=== PATIENT | male | born 1960 | race Hispanic/Latino ===

== ENCOUNTER → 2018-04-28 | Day surgery (SDC) | payer BC ==
[2018-04-25 09:59] LABS: BASOPHILS # (AUTO) 0.1 (0.0-0.1); BASOPHILS % 0.6 % (0.0-1.0); EOSINOPHILS # (AUTO) 0.1 (0.0-0.4); EOSINOPHILS % 1.1 % (0.0-6.0); HEMATOCRIT 45.5 % (38.2-49.6); HEMOGLOBIN 15.1 g/dL (14.0-18.0); LYMPHOCYTES # (AUTO) 1.6 (1.0-3.2); LYMPHOCYTES % 19.2 % (18.0-39.1); MEAN CORPUSCULAR HEMOGLOBIN 28.7 pg (28-32); MEAN CORPUSCULAR HGB CONC 33.2 g/dL (31-35); MEAN CORPUSCULAR VOLUME 86.3 fL (81-99); MONOCYTES # (AUTO) 0.5 (0.2-0.8); MONOCYTES % 5.4 % (4.4-11.3); NEUTROPHILS # (AUTO) 6.1 (2.1-6.9); NEUTROPHILS % 73.3 % (38.7-80.0); PLATELET COUNT 328 x10e3/uL (140-360); RED BLOOD COUNT 5.27 x10e6/uL (4.3-5.7); RED CELL DISTRIBUTION WIDTH 13.5 % (11.7-14.4)
[2018-04-25 10:25] LABS: ANION GAP 15.1 mmol/L (8-16); BLOOD UREA NITROGEN 18 mg/dL (7-26); BUN/CREATININE RATIO 20 (6-25); CALCIUM 9.7 mg/dL (8.4-10.2); CARBON DIOXIDE 28 mmol/L (22-29); CHLORIDE 99 mmol/L (98-107); CREATININE, SERUM 0.92 mg/dL (0.72-1.25); EST GLOMERULAR FILTRATION RATE > 60 ML/MIN (60-); GLUCOSE 111 mg/dL (74-118); POTASSIUM 4.1 mmol/L (3.5-5.1); SODIUM 138 mmol/L (136-145)
--- NOTE | 2018-04-25 10:42 | Diagnostic Imaging Report ---
EXAMINATION: PA and lateral views of the chest. COMPARISON: None CLINICAL HISTORY: Preoperative study inguinal hernia repair DISCUSSION: Lungs are well-inflated. No focal airspace consolidation, pleural effusion, or pneumothorax. Tortuous thoracic aorta with otherwise normal cardiomediastinal contour. No acute osseous abnormality. IMPRESSION: No acute cardiopulmonary abnormalities. Signed by: Dr. Juan Adame M.D. on 04/25/2018 10:39 AM
[~2018-04-28] MED LIST: BUPIVACAINE 0.25%/EPI 30ML SDV INJ ONE; CENTRUM COMPLE1 EACH PO; FENTANYL CITRATE/PF 100MCG/2 ML INJ ONE; HYDROCODONE/APAP 7.5MG-325MG 1 EA TAB ONE; KETAMINE HCL INJ 50 MG/ML 10 ML VIAL ONE; LIDOCAINE HCL 1% LOCAL INJ 20 ML VIAL ONE; LIDOCAINE HCL 2% LOCAL INJ 5 ML SDV VIAL INJ ONE; LOSARTAN POTASS25 MG PO; LOSARTAN-HCTZ1 EAC2 PO; METFORMIN HCL500 MG PO; MIDAZOLAM HCL 2 MG/2 ML VIAL ONE; PROPOFOL IV EMULSION 10 MG/ML 20 ML VIAL ONE
--- OUTSIDE RECORDS SUMMARY | 2018-04-28 08:08 | XMS REPORT ---
Author [facility] Address Unknown Phone Unavailable Care Team Providers Care Clinical Research Analyst Name Role Phone Melyssa CASTLE Unavailable Unavailable Problems This patient has no known problems. Allergies, Adverse Reactions, Alerts This patient has no known allergies or adverse reactions. Medications This patient has no known medications. Results Test Description Test Time Test Comments Text Results Atomic Results Result Comments CHEST 2 VIEWS 2018-04-25 10:37:00 [place] [id number] Patient Name: TAMMIE TANG MR #: [id number] : 1960 Age/Sex: 57/M Req #: [id number] Adm Physician: Ordered by: ELLEN CASTLE MD Report #: [id number] Location: OR Room/Bed: Procedure: [id number] DX/CHEST 2 VIEWS Exam Date: 04/25/18 Exam Time: 1000 REPORT STATUS: Signed EXAMINATION: PA and lateral views of the chest. COMPARISON: None CLINICAL HISTORY: Preoperative study inguinal hernia repair DISCUSSION: Lungs are well-inflated. No focal airspace consolidation, pleural effusion, or pneumothorax. Tortuous thoracic aorta with otherwise normal cardiomediastinal contour. No acute osseous abnormality. IMPRESSION: No acute cardiopulmonary abnormalities. Signed by: Dr. Agustina Galvin M.D. on 04/25/2018 10:39 AM Dictated By: AGUSTINA GALVIN MD 38 Transcribed By: THOR on 04/25/181038 COPY TO: ELLEN CASTLE MD
--- NOTE | 2018-04-28 13:28 | Operative Report ---
DATE OF PROCEDURE: April 28, 2018 PREOPERATIVE DIAGNOSIS: Left inguinal hernia. POSTOPERATIVE DIAGNOSIS: Left direct inguinal hernia. OPERATION PERFORMED: Repair of left direct inguinal hernia with large Prolene Hernia System. ANESTHESIA: Local 1% Xylocaine and 1/4 percent Marcaine and MAC. COMPLICATIONS: None. ESTIMATED BLOOD LOSS: Minimal. DESCRIPTION OF PROCEDURE: With the patient lying in bed in the supine position, under good IV sedation, the left groin and lower abdomen were prepped with Betadine solution and draped in the usual manner. A standard field block was performed with 1/4 percent Marcaine and 1% lidocaine mixed in equal parts. A left groin incision was made. It was carried down through the subcutaneous tissue down to the external oblique aponeurosis. External oblique was opened along the length of its fibers. The external inguinal ring was opened. The cord was then mobilized and retracted. Contained within the cord, there was no indirect hernia sac. There was, however, a large direct hernia sac present. The direct hernia sac was then imbricated with a pursestring suture of 2-0 silk. The preperitoneal space was then entered right through the internal ring, and a pocket was created without any difficulty. A large Prolene Hernia System was placed in the preperitoneal space, and the underlay patch was deployed without any problems. The overlay patch was placed over the floor and split inferolaterally to allow for passage of the cord. The mesh was then sutured to the conjoined tendon and the inguinal ligament using interrupted sutures of 2-0 Vicryl . The whole area was then thoroughly irrigated. Perfect hemostasis was ascertained. The external oblique aponeurosis was closed with a running suture of 2-0 Vicryl. The subcutaneous tissue was approximated with 3-0 plain, and the skin was closed with clips. Dressing was applied. The sponge, lap and needle count was correct. The patient tolerated the procedure well and returned to the recovery room in stable condition. Job#: [id number]
[2018-04-28 15:00] VITALS: BP 100/69
== END | disposition home or self-care (01) ==
LOC: OR 08:05
PROVIDERS: ATTEND Surgery
DX: K40.90 Unilateral inguinal hernia, without obstruction or gangrene, not specified as recurrent (principal); Z01.810 Encounter for preprocedural cardiovascular examination; Z01.812 Encounter for preprocedural laboratory examination; Z01.811 Encounter for preprocedural respiratory examination; E11.9 Type 2 diabetes mellitus without complications; I10 Essential (primary) hypertension; Z79.84 Long term (current) use of oral hypoglycemic drugs
CPT/HCPCS: 36415 ×2; 49505; 71046; 80048; 82948; 85025; 93005; C1781; J2001 ×2; J2250; J2704

== ENCOUNTER 2019-02-04 16:26 | Inpatient (IN) | payer BC ==
[~2019-02-04] VITALS: Ht 172.7 cm; Wt 86.2 kg
[~2019-02-04 16:26] MED LIST changes: -BUPIVACAINE 0.25%/EPI 30ML SDV INJ ONE; -FENTANYL CITRATE/PF 100MCG/2 ML INJ ONE; -HYDROCODONE/APAP 7.5MG-325MG 1 EA TAB ONE; -KETAMINE HCL INJ 50 MG/ML 10 ML VIAL ONE; -LIDOCAINE HCL 1% LOCAL INJ 20 ML VIAL ONE; -LIDOCAINE HCL 2% LOCAL INJ 5 ML SDV VIAL INJ ONE; -MIDAZOLAM HCL 2 MG/2 ML VIAL ONE; -PROPOFOL IV EMULSION 10 MG/ML 20 ML VIAL ONE
[2019-02-04] MEDS ORDERED: SODIUM CHLORIDE 0.9% 1000ML 1,000 ML IV STA (17:10)
[2019-02-04] MEDS ORDERED: DILTIAZEM HCL 5 MG/ML 5 ML VIAL IV ONE (17:30)
[2019-02-04] MEDS ORDERED: ASPIRIN 81 MG CHEW TAB PO ONE (17:30)
[2019-02-04 17:45] LABS: BASOPHILS # (AUTO) 0.1 (0.0-0.1); BASOPHILS % 0.5 % (0.0-1.0); EOSINOPHILS # (AUTO) 0.1 (0.0-0.4); EOSINOPHILS % 1.1 % (0.0-6.0); HEMATOCRIT 40.8 % (38.2-49.6); HEMOGLOBIN 13.6 g/dL (14.0-18.0); LYMPHOCYTES % 21.8 % (18.0-39.1); MEAN CORPUSCULAR HEMOGLOBIN 29.1 pg (28-32); MEAN CORPUSCULAR HGB CONC 33.3 g/dL (31-35); MEAN CORPUSCULAR VOLUME 87.4 fL (81-99); MONOCYTES # (AUTO) 0.7 (0.2-0.8); MONOCYTES % 7.1 % (4.4-11.3); NEUTROPHILS # (AUTO) 6.4 (2.1-6.9); NEUTROPHILS % 69.2 % (38.7-80.0); PLATELET COUNT 313 x10e3/uL (140-360); RED BLOOD COUNT 4.67 x10e6/uL (4.3-5.7); RED CELL DISTRIBUTION WIDTH 13.5 % (11.7-14.4)
[2019-02-04] MEDS ORDERED: AMIODARONE HCL 360MG 200 ML IV SCH ×2 (17:45→18:00)
[2019-02-04 18:00] LABS: ALANINE AMINOTRANSFERASE 27 IU/L (0-55); ALBUMIN 3.9 g/dL (3.5-5.0); ALBUMIN/GLOBULIN RATIO 1.1 (0.8-2.0); ALKALINE PHOSPHATASE 59 IU/L (40-150); ANION GAP 15.9 mmol/L (8-16); BLOOD UREA NITROGEN 24 mg/dL (7-26); BUN/CREATININE RATIO 21 (6-25); CALCIUM 8.7 mg/dL (8.4-10.2); CARBON DIOXIDE 24 mmol/L (22-29); CHLORIDE 100 mmol/L (98-107); CREATINE KINASE 168 IU/L (30-200); CREATININE, SERUM 1.14 mg/dL (0.72-1.25); EST GLOMERULAR FILTRATION RATE > 60 ML/MIN (60-); GLUCOSE 153 mg/dL (74-118); MAGNESIUM 2.1 MG/DL (1.3-2.1); POTASSIUM 3.9 mmol/L (3.5-5.1); SODIUM 136 mmol/L (136-145)
[2019-02-04] MEDS ORDERED: AMIODARONE HCL 150MG 100 ML IV ONE (18:00)
--- NOTE | 2019-02-04 18:02 | Diagnostic Imaging Report ---
EXAMINATION: CHEST SINGLE (PORTABLE) INDICATION: ^afib rvr ^[id number] ^[id number] COMPARISON: Chest radiograph 04/25/2018 FINDINGS: AP view TUBES and LINES: None. LUNGS: Low lung volumes. Mild central pulmonary vascular congestion. No pneumonia. PLEURA: No pleural effusion or pneumothorax. HEART AND MEDIASTINUM: Prominent cardiac silhouette likely due to portable technique. Mildly tortuous thoracic aorta. BONES AND SOFT TISSUES: No acute osseous lesion. Soft tissues are unremarkable. UPPER ABDOMEN: No free air under the diaphragm. IMPRESSION: Mild central pulmonary vascular congestion may be overestimated by portable technique. Signed by: Dr. Donna Carmichael M.D. on 02/04/2019 5:59 PM
[2019-02-04 18:10] LABS: BILIRUBIN,URINE NEGATIVE (NEGATIVE); CLARITY,URINE CLEAR (CLEAR); COLOR,URINE YELLOW (YELLOW); KETONES,URINE NEGATIVE (NEGATIVE); LEUKOCYTE ESTERASE ,URINE NEGATIVE (NEGATIVE); NITRITE,URINE NEGATIVE (NEGATIVE); PROTEIN,URINE DIPSTICK NEGATIVE (NEGATIVE); URINE UROBILINOGEN 0.2 mg/dL (0.2 - 1)
[2019-02-04 18:13] LABS: INR 0.86; PROTHROMBIN TIME 12.2 seconds (11.9-14.5)
[2019-02-04] MEDS: AMIODARONE 900MG 500 ML IV SCH (18:14)
[2019-02-04] MEDS ORDERED: ENOXAPARIN SODIUM INJ 100 MG/ML SYR SC ONE (18:30)
[2019-02-04] MEDS ORDERED: NITROGLYCERIN 0.4 MG SUBL SL PRN (19:00)
[2019-02-04] MEDS ORDERED: ONDANSETRON HCL INJ 2MG/ML 2ML 2 MG/ML VIAL IV PRN (19:00)
[2019-02-04] MEDS ORDERED: SODIUM CHLORIDE 0.9% 1000ML 1,000 ML IV ONE (19:00)
--- NOTE | 2019-02-04 19:02 | NUR ---
REPORT GIVEN TO JOSÉ PIMENTEL
[2019-02-04 19:12] LABS: BACTERIA,URINE RARE /HPF; RBC,URINE 0-5 /HPF (0-5); WBC,URINE (MAN) 0-5 /HPF (0-5)
[2019-02-04] MEDS: FAMOTIDINE 20 MG/2 ML VIAL IV SCH (19:22)
[2019-02-04 19:55] VITALS: BP 135/95
[2019-02-04 20:00] VITALS: BP 135/95
[2019-02-04 20:24] VITALS: BP 119/76
[2019-02-04 21:00] VITALS: BP 96/75
[2019-02-04 22:00] VITALS: BP 98/81
[2019-02-04 23:00] VITALS: BP 105/78
[2019-02-05] VITALS (27 sets, daily range): BP systolic 91–115; BP diastolic 56–91
[2019-02-05 00:31] LABS: CREATINE KINASE 104 IU/L (30-200)
[2019-02-05 05:15] LABS: BASOPHILS % 0.4 % (0.0-1.0); EOSINOPHILS # (AUTO) 0.1 (0.0-0.4); EOSINOPHILS % 1.9 % (0.0-6.0); HEMATOCRIT 38.6 % (38.2-49.6); HEMOGLOBIN 12.7 g/dL (14.0-18.0); LYMPHOCYTES # (AUTO) 1.6 (1.0-3.2); LYMPHOCYTES % 23.1 % (18.0-39.1); MEAN CORPUSCULAR HEMOGLOBIN 28.8 pg (28-32); MEAN CORPUSCULAR HGB CONC 32.9 g/dL (31-35); MEAN CORPUSCULAR VOLUME 87.5 fL (81-99); MONOCYTES # (AUTO) 0.6 (0.2-0.8); MONOCYTES % 8.3 % (4.4-11.3); NEUTROPHILS # (AUTO) 4.5 (2.1-6.9); NEUTROPHILS % 65.9 % (38.7-80.0); PLATELET COUNT 266 x10e3/uL (140-360); RED BLOOD COUNT 4.41 x10e6/uL (4.3-5.7); RED CELL DISTRIBUTION WIDTH 13.7 % (11.7-14.4)
[2019-02-05 05:34] LABS: ALANINE AMINOTRANSFERASE 21 IU/L (0-55); ALBUMIN 3.2 g/dL (3.5-5.0); ALBUMIN/GLOBULIN RATIO 1.1 (0.8-2.0); ALKALINE PHOSPHATASE 48 IU/L (40-150); ANION GAP 11.6 mmol/L (8-16); BLOOD UREA NITROGEN 12 mg/dL (7-26); BUN/CREATININE RATIO 16 (6-25); CARBON DIOXIDE 23 mmol/L (22-29); CHLORIDE 106 mmol/L (98-107); CHOL/HDL RATIO 4.2 (3.9-4.7); CHOLESTEROL 146 MD/DL (0-199); CREATININE, SERUM 0.77 mg/dL (0.72-1.25); EST GLOMERULAR FILTRATION RATE > 60 ML/MIN (60-); GLUCOSE 126 mg/dL (74-118); HDL CHOLESTEROL 35 MG/DL (40-60); LDL CHOLESTEROL 83 MG/DL (60-130); POTASSIUM 3.6 mmol/L (3.5-5.1); SODIUM 137 mmol/L (136-145); TRIGLYCERIDES 142 MG/DL (0-149)
[2019-02-05 05:58] LABS: CREATINE KINASE 91 IU/L (30-200)
[2019-02-05] MEDS: FAMOTIDINE 20 MG/2 ML VIAL IV SCH (06:01)
[2019-02-05 06:06] LABS: CREATINE KINASE MB < 1.00 ng/mL (0-4.3)
[2019-02-05] MEDS ORDERED: ENOXAPARIN SODIUM INJ 100 MG/ML SYR SC ONE (07:00)
[2019-02-05] MEDS: ASPIRIN 81 MG ENTERIC COATED PO SCH (08:27)
[2019-02-05] MEDS: METFORMIN HCL 500 MG TAB PO SCH (08:27)
[2019-02-05] MEDS ORDERED: POTASSIUM CHLORIDE 20 MEQ TAB CR PO ONE (08:30)
[2019-02-05] MEDS: METOPROLOL TARTRATE 25 MG TAB PO SCH ×2 (09:29→16:19)
[2019-02-05] MEDS ORDERED: METOPROLOL TARTRATE 25 MG TAB ONE (09:30)
[2019-02-05] MEDS ORDERED: ONDANSETRON HCL INJ 2MG/ML 2ML 2 MG/ML VIAL IV PRN (12:15)
[2019-02-05] MEDS ORDERED: ACETAMINOPHEN 325 MG TAB PO PRN (12:15)
--- NOTE | 2019-02-05 12:34 | Consultation ---
DATE OF CONSULTATION: Pulmonary Critical Care Consultation CHIEF COMPLAINT: Palpitations and fast heart rate. HISTORY OF PRESENT ILLNESS: The patient is a 58-year-old man. He has a history of high blood pressure, but no prior heart problems. Yesterday afternoon, he noticed the abrupt onset of tachycardia. He had palpitations, but no chest pain. He had no dyspnea. He denied any nausea or vomiting. He had no cough. The patient went to the emergency department. He was found to be in rapid atrial fibrillation. He received some Cardizem and was started on amiodarone drip. He was subsequently admitted to the ICU. PAST SURGICAL HISTORY: Status post inguinal hernia repair earlier this year. PAST MEDICAL HISTORY: Hypertension. SOCIAL HISTORY: The patient has never been a smoker. He is not a drinker. FAMILY HISTORY: Family history is noncontributory. ALLERGIES: THERE ARE NO KNOWN DRUG ALLERGIES. REVIEW OF SYSTEMS: The patient is afebrile. He has no headache. He has no neck pain. He is not complaining of any chest pain. He has no dyspnea or cough. He did have some palpitations, but this has improved. He has no nausea or vomiting. There is no leg edema. PHYSICAL EXAMINATION: VITAL SIGNS: The patient is afebrile. The blood pressure is 114/83, saturation is 100%, and the pulse is 94. HEENT: Shows no facial swelling or erythema. CARDIAC: Reveals an irregularly irregular rhythm with normal S1 and S2. There are no murmurs or rubs. LUNGS: Auscultation of lungs shows clear breath sounds bilaterally. There is no wheezing. ABDOMEN: Soft and nontender. There is no rebound or guarding. EXTREMITIES: Shows no leg edema or calf tenderness. There is no cyanosis or clubbing. SKIN: Shows no rashes. NEUROLOGICAL: Shows no focal abnormalities. LABORATORY DATA: White blood cell count is 6.8 and the hemoglobin is 12.7. The platelet count is 266. The BUN to creatinine ratio is normal. The other electrolytes are within normal limits. Troponin I is normal. TSH is still pending. IMPRESSION: 1. New onset atrial fibrillation with rapid ventricular response. 2. Hypertension. PLAN: 1. Continue amiodarone loading protocol. 2. Continue Lovenox. 3. Echocardiogram and Cardiology consultation. 4. Await thyroid studies. 5. Control blood pressure. MD CHRISTINA Medrano /[id number]
[2019-02-05 14:01] LABS: CREATINE KINASE 75 IU/L (30-200)
[2019-02-05] MEDS: AMIODARONE 900MG 500 ML IV SCH (15:46)
--- NOTE | 2019-02-05 15:52 | Consultation ---
DATE OF CONSULTATION: 02/05/2019 Cardiac Consultation REASON FOR CONSULTATION: Atrial fibrillation. HISTORY: A 58-year-old gentleman who is known with hypertension for the last 20 years, diabetic for a year. The patient used to be on losartan. He was changed to Benicar-hydrochlorothiazide. Initially started on 40-12.5. It caused him quite a lot of dizzy spells, so it was decreased to 20-12.5. He is still having postural hypotension like symptoms. 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 Yesterday, he noted at work his heart irregular. He felt dizzy and he felt not easy. He went back home despite relaxing and so on he continued to have symptoms. For that reason, he came to this institution at 5:00 p.m. Diagnosed with atrial fibrillation with rapid ventricular response. The patient is started on intravenous amiodarone. Admit to intensive care unit. The patient is seen and evaluated. He is still in atrial fibrillation. He is feeling better now. He denied having any angina. He denied having any congestive heart failure like symptoms. He denied having any syncope or presyncope, although he does have postural hypotension and dizzy spells and a palpitation feeling. REVIEW OF SYSTEMS: Extensive to all systems, will be summarized for clarity. GENERAL: No recent flu-like illness. No fever. No chills. No weight loss. No weight gain. PULMONARY: No cough. No hemoptysis. GI: No hematemesis. No melena. : No hematuria. No dysuria. MUSCULOSKELETAL: No aches. No pain. ENDOCRINE: The patient is diabetic for a year on medication. No heat or cold intolerance. HEMATOLOGY: No easy bruising or bleeding. SOCIAL HISTORY: He is . He is nonsmoker and non-alcohol drinker. 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 PAST MEDICAL HISTORY: 1. Hypertension for the last 20 years. 2. Diabetic since 2018. 3. Left inguinal hernia surgery. ALLERGIES: NONE. HOME MEDICATIONS: Metformin 500 mg twice a day, multivitamins, Benicar/hydrochlorothiazide 20/12.5 one tablet a day. FAMILY HISTORY: Father is doing well at age 87. He does have some prostate problem. Mother is ill with diabetic complication. She is 82-year-old; 10 siblings, 5 brothers, 5 sisters. Diabetes at least in one of them, 4 kids, 2 sons and 2 daughters. They are all healthy. PHYSICAL EXAMINATION: VITAL SIGNS: Height of 5 feet 8 inches, weight of 190 pounds, blood pressure 110/80, heart rate of 110 irregularly irregular atrial fibrillation, respiratory rate of 18. HEENT: Pupils are equal and reactive. NECK: No elevation of jugular venous pulsation. No bruit. CHEST: Clear to auscultation and percussion. HEART: PMI 5th left intercostal space. Normal first and second heart sounds. ABDOMEN: Soft with good bowel sounds. No organomegaly. No abdominal bruits. EXTREMITIES: No cyanosis, no clubbing, no edema. NEUROLOGIC: Awake, alert, oriented. No motor deficits. Normal exam. LABORATORY DATA: Sodium of 137, potassium 3.6, BUN 12, creatinine of 0.8, glucose of 126. White blood cell count of 6.8, hemoglobin 12.7, hematocrit 39%, and platelet count of 266,000. BNP and cardiac enzymes are normal. Triglycerides 142, cholesterol of 146, HDL 35, LDL 83. EKG showing atrial fibrillation with ST-T segment changes. Rapid ventricular response. Chest x-ray by report showed possible mild volume overload, but BNP is normal and cardiac enzymes are normal. IMPRESSION AND PLAN: 1. New onset atrial fibrillation. 2. Diabetes mellitus. 3. Hypertension. Cardiac drummond recommendation will be already the patient started on IV amiodarone and anticoagulation, which we will continue. We will add beta-hiren. We will check TSH. We will check hemoglobin A1c and we will check an echocardiogram. Atrial fibrillation discussed and explained to the patient, his , his daughter at length, including goal of treatment, heart control, maintaining grasp and prevention of CVA. His CHADS score is at least 3. All this explained and discussed. Questions are answered. Of note, we need to adjust his medication by decreasing his SANDHYA inhibitor because of the postural hypotension symptoms. For the time being, we will keep it on hold since his blood pressure is nicely controlled. The patient is seen and evaluated in ICU. Discussed with the patient and his family. Discussed with the excellent nursing staff and plan is formulated. MD EZE Woodard/MODL /[id number]
[2019-02-05] MEDS: FAMOTIDINE 20 MG TAB PO SCH (16:19)
[2019-02-05] MEDS: ENOXAPARIN INJ 80 MG/0.8 ML SYR SC SCH (19:10)
[2019-02-05] MEDS ORDERED: ZOLPIDEM TARTRATE 5 MG TAB PO PRN (21:00)
[2019-02-06] VITALS (25 sets, daily range): BP systolic 105–135; BP diastolic 74–89
[2019-02-06] MEDS: METOPROLOL TARTRATE 25 MG TAB PO SCH ×4 (00:03→17:03)
[2019-02-06 04:49] LABS: BASOPHILS % 0.5 % (0.0-1.0); EOSINOPHILS # (AUTO) 0.1 (0.0-0.4); EOSINOPHILS % 2.1 % (0.0-6.0); HEMATOCRIT 40.5 % (38.2-49.6); HEMOGLOBIN 13.4 g/dL (14.0-18.0); LYMPHOCYTES # (AUTO) 2.1 (1.0-3.2); MEAN CORPUSCULAR HEMOGLOBIN 28.9 pg (28-32); MEAN CORPUSCULAR HGB CONC 33.1 g/dL (31-35); MEAN CORPUSCULAR VOLUME 87.3 fL (81-99); MONOCYTES # (AUTO) 0.5 (0.2-0.8); MONOCYTES % 8.1 % (4.4-11.3); NEUTROPHILS # (AUTO) 3.8 (2.1-6.9); PLATELET COUNT 282 x10e3/uL (140-360); RED BLOOD COUNT 4.64 x10e6/uL (4.3-5.7); RED CELL DISTRIBUTION WIDTH 13.7 % (11.7-14.4)
[2019-02-06 05:04] LABS: ANION GAP 13.1 mmol/L (8-16); BLOOD UREA NITROGEN 14 mg/dL (7-26); BUN/CREATININE RATIO 15 (6-25); CARBON DIOXIDE 24 mmol/L (22-29); CHLORIDE 106 mmol/L (98-107); CREATININE, SERUM 0.92 mg/dL (0.72-1.25); EST GLOMERULAR FILTRATION RATE > 60 ML/MIN (60-); GLUCOSE 135 mg/dL (74-118); POTASSIUM 4.1 mmol/L (3.5-5.1); SODIUM 139 mmol/L (136-145)
[2019-02-06] MEDS: ENOXAPARIN INJ 80 MG/0.8 ML SYR SC SCH (06:16)
[2019-02-06] MEDS: FAMOTIDINE 20 MG TAB PO SCH ×2 (08:05→16:51)
[2019-02-06] MEDS: ASPIRIN 81 MG ENTERIC COATED PO SCH (08:10)
[2019-02-06] MEDS: METFORMIN HCL 500 MG TAB PO SCH (08:10)
--- NOTE | 2019-02-06 09:13 | NUR ---
0730 PATIENT UP IN CHAIR FOR BREAKFAST. AMBULATED TO TOILET ON CONTINUOUS MONITORING. TOLERATING WELL. VITAL SIGNS STABLE.
[2019-02-06] MEDS ORDERED: FENTANYL CITRATE/PF 100MCG/2 ML INJ IV PRN (10:00)
[2019-02-06] MEDS ORDERED: SODIUM CHLORIDE 0.9% 1000ML 1,000 ML IV SCH (10:00)
[2019-02-06] MEDS ORDERED: MIDAZOLAM HCL 2 MG/2 ML VIAL IV PRN (10:00)
[2019-02-06] MEDS ORDERED: BENZOCAINE/TETRACAINE/BUTAMBEN AERO SPRAY 56 GM CAN TOP ONE (10:20)
--- NOTE | 2019-02-06 11:16 | NUR ---
HR CONVERTED TO NSR FROM AFIB. NOTIFIED DR CORTES AND PATIENT INFORMED.
[2019-02-06] MEDS: AMIODARONE HCL 200 MG TAB PO SCH (16:51)
[2019-02-06] MEDS ORDERED: METOPROLOL TART25 MG PO (16:55)
[2019-02-06] MEDS ORDERED: AMIODARONE HCL200 MG PO (16:55)
[2019-02-06] MEDS ORDERED: ELIQUIS5 MG PO (16:55)
[2019-02-06] MEDS ORDERED: RIVAROXABAN 10 MG TABLET PO SCH (17:00)
[2019-02-06] MEDS ORDERED: APIXABAN 5 MG TABLET ONE (17:07)
[2019-02-06] MEDS: APIXABAN 5 MG TABLET PO SCH (17:07)
--- NOTE | 2019-02-06 17:08 | Progress Note ---
DATE: SUBJECTIVE: The patient converted back to sinus rhythm. He feels better. He is not having chest pain or lightheadedness. PHYSICAL EXAMINATION: VITAL SIGNS: The patient is afebrile. The vital signs are stable. HEENT: Shows no facial swelling or erythema. CARDIAC: Reveals a regular rate and rhythm with normal S1 and S2. LUNGS: Auscultation of lungs shows clear breath sounds bilaterally. There is no wheezing. ABDOMEN: Soft and nontender. There is no rebound or guarding. EXTREMITIES: Shows no leg edema or calf tenderness. IMPRESSION: 1. Atrial fibrillation. 2. Hypertension. PLAN: 1. Observe the patient overnight. 2. Tentative discharge tomorrow on amiodarone and Eliquis. 3. The patient to follow up with Cardiology. MD FLETCHER Medrano/ANNALISE /[id number]
[2019-02-07] VITALS (9 sets, daily range): BP systolic 111–139; BP diastolic 74–92
[2019-02-07] MEDS: METOPROLOL TARTRATE 25 MG TAB PO SCH ×2 (00:12→06:38)
[2019-02-07 03:50] LABS: BASOPHILS % 0.6 % (0.0-1.0); EOSINOPHILS # (AUTO) 0.1 (0.0-0.4); EOSINOPHILS % 2.1 % (0.0-6.0); HEMATOCRIT 40.1 % (38.2-49.6); HEMOGLOBIN 13.2 g/dL (14.0-18.0); LYMPHOCYTES # (AUTO) 1.8 (1.0-3.2); LYMPHOCYTES % 26.4 % (18.0-39.1); MEAN CORPUSCULAR HEMOGLOBIN 28.8 pg (28-32); MEAN CORPUSCULAR HGB CONC 32.9 g/dL (31-35); MEAN CORPUSCULAR VOLUME 87.6 fL (81-99); MONOCYTES # (AUTO) 0.6 (0.2-0.8); NEUTROPHILS # (AUTO) 4.1 (2.1-6.9); NEUTROPHILS % 61.7 % (38.7-80.0); PLATELET COUNT 270 x10e3/uL (140-360); RED BLOOD COUNT 4.58 x10e6/uL (4.3-5.7); RED CELL DISTRIBUTION WIDTH 13.5 % (11.7-14.4)
[2019-02-07 04:08] LABS: ANION GAP 12.9 mmol/L (8-16); BLOOD UREA NITROGEN 16 mg/dL (7-26); BUN/CREATININE RATIO 17 (6-25); CALCIUM 8.4 mg/dL (8.4-10.2); CARBON DIOXIDE 24 mmol/L (22-29); CHLORIDE 107 mmol/L (98-107); CREATININE, SERUM 0.93 mg/dL (0.72-1.25); EST GLOMERULAR FILTRATION RATE > 60 ML/MIN (60-); GLUCOSE 100 mg/dL (74-118); POTASSIUM 3.9 mmol/L (3.5-5.1); SODIUM 140 mmol/L (136-145)
[2019-02-07] MEDS: FAMOTIDINE 20 MG TAB PO SCH (07:37)
[2019-02-07] MEDS: METFORMIN HCL 500 MG TAB PO SCH (07:39)
[2019-02-07] MEDS: APIXABAN 5 MG TABLET PO SCH (08:10)
[2019-02-07] MEDS: ASPIRIN 81 MG ENTERIC COATED PO SCH (08:10)
[2019-02-07] MEDS: AMIODARONE HCL 200 MG TAB PO SCH (08:10)
--- NOTE | 2019-02-07 09:42 | NUR ---
Discharge instructions, medication reconciliation. Printed: atrial fibrillation and the new medications in maori and macedonian, the medications and regimen were discussed. Understood that PM medications will need to be taken this evening. Discussed bleeding precautions, avoiding injury, use electric shaver, avoiding dangerous activities, seek emergency care if bleeding occurs that cannot be controlled to stop. Also to seek emergency care for chest pain, recurrance of palpitations. Discussed activity restriction of no driving and rest until cleared by cardiology, possibly tomorrow.
--- NOTE | 2019-02-08 07:26 | Discharge Summary ---
ADMISSION DIAGNOSES: New onset atrial fibrillation with rapid ventricular response, hypertension, type 2 diabetes. DISCHARGE DIAGNOSES: New onset atrial fibrillation with rapid ventricular response, hypertension, type 2 diabetes. HISTORY: Hypertension and type 2 diabetes. SURGICAL HISTORY: Left inguinal hernia repair. FAMILY HISTORY: The patient's mother has diabetes. SOCIAL HISTORY: Occasional alcohol use. HOSPITAL COURSE: A 58-year-old male admits with complaints of palpitations that began around noon on the day of admission. He just finished eating lunch when the palpitations started. He had associated dizziness that began 1 hour after onset. Nothing improved or worsen the symptoms. He had a similar episode about 2 months ago, but the ER did not mention any arrhythmias. On admission, the patient had an EKG that showed Afib with RVR with a rate of 152. The patient was given diltiazem in the ER and started on amiodarone drip as well as Lovenox. Echo showed an EF of 61%. Cardiology was consulted. Chest x-ray showed pulmonary vascular congestion. TSH was within normal limits. The patient was weaned off amiodarone drip and given a prescription for amiodarone 200 daily, Eliquis 5 b.i.d., and metoprolol 25 b.i.d. per Cardiology recommendation. He will follow up with Cardiology the day after discharge. The patient and family understand discharge instructions and agreed to plan. Vital signs stable, the patient afebrile. Dictated by Rosemarie Olea NP MD RAJESH Zamora/ANNALISE /[id number]
== END 2019-02-07 09:30 | disposition home or self-care (01) | DRG 310 ==
LOC: ER 16:26 → ERHOLD 19:07 → ICU 19:55
PROVIDERS: ADMIT Internal Medicine; ATTEND Internal Medicine
DX: I48.91 Unspecified atrial fibrillation (principal); E11.9 Type 2 diabetes mellitus without complications; I10 Essential (primary) hypertension; I95.9 Hypotension, unspecified; Z79.84 Long term (current) use of oral hypoglycemic drugs
CPT/HCPCS: 36415; 71045; 80048; 80053; 80061; 81001; 82550; 82553; 83036; 83735; 83880; 84443; 84484; 85025; 85379; 85610; 85730; 87086; 93005; 93306; 99284; J1650; J7030

== ENCOUNTER 2019-02-11 20:55 | Observation (INO) | payer BC ==
[~2019-02-11] VITALS: Ht 172.7 cm; Wt 83.2 kg
[~2019-02-11 20:55] MED LIST changes: +AMIODARONE HCL200 MG PO; +ELIQUIS5 MG PO; +METOPROLOL TART25 MG PO
[2019-02-11] MEDS ORDERED: MECLIZINE HCL 12.5 MG TAB ONE (21:50)
[2019-02-11] MEDS ORDERED: MECLIZINE HCL 12.5 MG TAB PO ONE (22:00)
--- NOTE | 2019-02-11 23:24 | Diagnostic Imaging Report ---
EXAMINATION: Head CT without contrast. HISTORY:Dizziness. COMPARISON:None. TECHNIQUE: Multidetector axial images were obtained from the foramen magnum to the vertex without contrast. The images were reconstructed using brain and bone algorithms. Thin section brain images were reformatted into coronal and sagittal planes. Dose modulation, iterative reconstruction, and/or weight based adjustment of the mA/kV was utilized to reduce the radiation dose to as low as reasonably achievable. Intravenous contrast: None IMAGE QUALITY: Suboptimal evaluation particularly at the level of skull base and posterior fossa structures due to streak artifacts. FINDINGS: Skull/scalp: No lytic or blastic. lesions. No surgical changes. Parenchyma: Focal hypodensity in anterior limb of right internal capsule that extends to the anterior aspect of right lentiform nucleus represents age indeterminate lacunar infarct. Questionable focal hypodensity versus artifact in the jadiel. No acute hemorrhage, mass or acute major vascular territorial infarct. Arteries: No density suggestive of thrombosis. Dural sinuses: No abnormal density suggestive of thrombosis. Ventricles: No hydrocephalus or displacement. Extra-axial spaces: No abnormal density. Brain volume: Mild generalized cerebral volume loss. Craniocervical junction: No mass, Chiari malformation, or basilar invagination. Sella: No mass. Paranasal/mastoid sinuses: Imaged portions unremarkable. IMPRESSION: Age indeterminate possible subacute lacunar infarct in right striato-capsular region. Age indeterminate lacunar infarct vs artifact in the jadiel. Mild generalized cerebral volume loss. Signed by: Dr. Junie Walters M.D. on 02/11/2019 11:20 PM
[2019-02-12] VITALS (8 sets, daily range): BP systolic 121–155; BP diastolic 72–85
[2019-02-12 00:47] LABS: BILIRUBIN,URINE NEGATIVE (NEGATIVE); CLARITY,URINE CLEAR (CLEAR); COLOR,URINE YELLOW (YELLOW); KETONES,URINE NEGATIVE (NEGATIVE); LEUKOCYTE ESTERASE ,URINE NEGATIVE (NEGATIVE); NITRITE,URINE NEGATIVE (NEGATIVE); PROTEIN,URINE DIPSTICK NEGATIVE (NEGATIVE); URINE UROBILINOGEN 0.2 mg/dL (0.2 - 1)
[2019-02-12 00:50] LABS: BASOPHILS % 0.4 % (0.0-1.0); EOSINOPHILS # (AUTO) 0.1 (0.0-0.4); EOSINOPHILS % 1.1 % (0.0-6.0); HEMATOCRIT 42.4 % (38.2-49.6); HEMOGLOBIN 13.9 g/dL (14.0-18.0); LYMPHOCYTES # (AUTO) 1.7 (1.0-3.2); LYMPHOCYTES % 23.2 % (18.0-39.1); MEAN CORPUSCULAR HGB CONC 32.8 g/dL (31-35); MEAN CORPUSCULAR VOLUME 88.3 fL (81-99); MONOCYTES # (AUTO) 0.5 (0.2-0.8); MONOCYTES % 6.3 % (4.4-11.3); NEUTROPHILS # (AUTO) 5.2 (2.1-6.9); NEUTROPHILS % 68.5 % (38.7-80.0); PLATELET COUNT 305 x10e3/uL (140-360); RED CELL DISTRIBUTION WIDTH 13.4 % (11.7-14.4)
[2019-02-12 00:55] LABS: INR 1.02; PARTIAL THROMBOPLASTIN TIME 35.4 seconds (23.8-35.5); PROTHROMBIN TIME 13.9 seconds (11.9-14.5)
[2019-02-12 01:04] LABS: ALANINE AMINOTRANSFERASE 29 IU/L (0-55); ALBUMIN/GLOBULIN RATIO 1.1 (0.8-2.0); ALKALINE PHOSPHATASE 53 IU/L (40-150); ANION GAP 13.2 mmol/L (8-16); BLOOD UREA NITROGEN 13 mg/dL (7-26); BUN/CREATININE RATIO 16 (6-25); CALCIUM 9.6 mg/dL (8.4-10.2); CARBON DIOXIDE 27 mmol/L (22-29); CHLORIDE 103 mmol/L (98-107); CREATINE KINASE 51 IU/L (30-200); EST GLOMERULAR FILTRATION RATE > 60 ML/MIN (60-); GLUCOSE 104 mg/dL (74-118); POTASSIUM 4.2 mmol/L (3.5-5.1); SODIUM 139 mmol/L (136-145)
[2019-02-12 01:10] LABS: RBC,URINE 0-5 /HPF (0-5); WBC,URINE (MAN) 0-5 /HPF (0-5)
--- NOTE | 2019-02-12 01:15 | Diagnostic Imaging Report ---
EXAMINATION: CHEST 2 VIEWS INDICATION: Stroke COMPARISON: Chest radiograph 04/25/2018, 02/04/2019 FINDINGS: PA and lateral views TUBES and LINES: None. LUNGS: Lungs are well inflated. Lungs are clear. There is no evidence of pneumonia or pulmonary edema. Mild central bronchial wall thickening. PLEURA: No pleural effusion or pneumothorax. HEART AND MEDIASTINUM: The cardiomediastinal silhouette is within normal size limits. Thoracic aortic calcifications. BONES AND SOFT TISSUES: No acute osseous lesion. Soft tissues are unremarkable. UPPER ABDOMEN: No free air under the diaphragm. IMPRESSION: Findings can be seen with bronchitis. Signed by: Yamil Fuentes DO on 02/12/2019 1:12 AM
[2019-02-12] MEDS ORDERED: ONDANSETRON HCL INJ 2MG/ML 2ML 2 MG/ML VIAL IV PRN (01:45)
[2019-02-12] MEDS ORDERED: SODIUM CHLORIDE FLUSH 10 ML SYR INJ PRN (01:45)
[2019-02-12] MEDS ORDERED: DEXTROSE 50% SYRINGE 50 ML IV PRN (01:45)
--- NOTE | 2019-02-12 05:20 | NUR ---
patient brought from ER. patient is alert and oriented, no signs of distress. patient welcomed and offered a bed, patient is currently stable, will continue to monitor.
[2019-02-12] MEDS ORDERED: ACETAMINOPHEN 325 MG TAB PO PRN (07:00)
[2019-02-12] MEDS ORDERED: HYDRALAZINE HCL 20 MG/ML VIAL IV PRN (07:00)
[2019-02-12 07:14] LABS: CHOL/HDL RATIO 3.2 (3.9-4.7)
--- NOTE | 2019-02-12 07:23 | NUR ---
Patient endorsed to next shift for continuity of care.
[2019-02-12] MEDS: INSULIN REGULAR, HUMAN 100 UNIT/1 ML 3ML VIAL SQ SCH ×4 (07:30→20:39)
[2019-02-12] MEDS ORDERED: ONDANSETRON HCL 4 MG ORAL DISINTEGRATING TAB PO PRN (07:30)
[2019-02-12 07:34] LABS: THYROID STIMULATING HORMONE 1.807 uIU/mL (0.350-4.940)
[2019-02-12] MEDS: AMIODARONE HCL 200 MG TAB PO SCH (09:12)
[2019-02-12] MEDS: APIXABAN 5 MG TABLET PO SCH ×2 (09:12→16:35)
[2019-02-12] MEDS: METOPROLOL TARTRATE 25 MG TAB PO SCH ×2 (09:13→16:35)
--- NOTE | 2019-02-12 12:45 | Consultation ---
DATE OF CONSULTATION: 02/12/2019 REASON FOR CONSULTATION: CVA. CHIEF COMPLAINT: Bilateral eye pain. HISTORY OF PRESENT ILLNESS: This is a 58-year-old male known to practice with a history of new onset paroxysmal atrial fibrillation, diabetes, and hypertension. The patient was recently seen here at [facility] with new onset atrial fibrillation. The patient self-converted and subsequently discharged home on OAC therapy Eliquis and antiarrhythmic therapy amiodarone. The patient had an ischemic evaluation as outpatient on February 09, 2019 with negative stress test. However, on Tuesday, the patient reports while watching TV started to have bilateral eye pain. However, pain progressed, therefore he came to the ER for further evaluation. CT of the head of the head was done showing subacute lacunar infarct in the right striatal-capsular region. Cardiology was consulted to evaluate the patient. The patient is seen in room, reports symptoms are better, however, continues with bilateral eye pain. Denies any dizziness or lightheadedness. The patient reports he is compliant with his OAC therapy. PAST MEDICAL HISTORY: 1. Paroxysmal atrial fibrillation. 2. Hypertension. 3. Diabetes. PAST SURGICAL HISTORY: Hernia repair, 2019. FAMILY HISTORY: Mother alive, history of diabetes. Father alive, 84 years old, unknown history. SOCIAL HISTORY: He is . He denies any alcohol use or tobacco use. ALLERGIES: NO KNOWN ALLERGIES. HOME MEDICATIONS: Include Eliquis 5 mg b.i.d., amiodarone 200 mg daily, metoprolol 25 mg twice a day, and metformin 500 mg daily. REVIEW OF SYSTEMS: GENERAL: Denies any weakness, fevers, chills, or night sweats. SKIN: No rashes or sores. HEENT: No nausea or vomiting. No vision changes, however, does report bilateral eye pain with eye movements. He denies any earaches, tinnitus, any epistaxis, sore throat, swollen neck, or bleeding gums. CARDIAC: Denies any chest pain, palpitation, dyspnea on exertion, orthopnea, PND, or lower extremity edema. RESPIRATORY: Denies any shortness of breath, any wheezing, coughing, or hemoptysis. GI: Reports good appetite. Denies any nausea, vomiting, diarrhea, constipation, melena, hematochezia, bloody or tarry stools. VASCULAR: Denies any lower extremity edema or claudication. MUSCULOSKELETAL: Denies any muscle weakness, generalized joint pains or back pain. NEUROLOGIC: Denies any weakness, tremors, paralysis, tingling, blackout, or seizures. HEMATOLOGY: Denies any bruising or bleeding. ENDOCRINE: Denies any heat or cold intolerance, polyuria, polydipsia, or polyphagia. PHYSICAL EXAMINATION: VITAL SIGNS: Height 68 inches, weight 183 pounds, BMI 27, blood pressure 122/72, heart rate 68, respiratory rate 12, and pulse ox 100% on room air. GENERAL: Appears stated age, reliable informant, in no acute distress. HEENT: Normocephalic. Pupils are equal and reactive. Extraocular movements intact. Trachea midline. Oral mucosa pink. No JVD. No carotid bruits. HEART: Regular rate and rhythm. No murmurs or clicks. PMI 4th and 5th intercostal space. LUNGS: Bilateral breath sounds clear to auscultation. ABDOMEN: Soft, nontender, and nondistended. No organomegaly. MUSCULOSKELETAL: Good muscle strength throughout. No lower extremity swelling. VASCULAR: +2 bilateral radial pulses, +2 bilateral DP, PT pulses. NEUROLOGIC: Cranial nerves II through XII seem intact. LABORATORY DATA: White count 7, hemoglobin 13, hematocrit 42, and platelets 305. Sodium 139, potassium 4.2, chloride 103, BUN 13, and creatinine 0.8. Troponin less than 0.001. Triglycerides 95, total cholesterol 49, LDL 83, and HDL 47. TSH 1.8. CT brain showing subacute lacunar infarct in right striatal-capsular region. ASSESSMENT AND PLAN: 1. Possible cerebrovascular accident. 2. Paroxysmal atrial fibrillation. 3. Hypertension. 4. Diabetes. PLAN: 1. The patient presents with bilateral eye pain. CT of the head showing possible subacute lacunar infarct. Neurology has been consulted. The patient is to have an MRI for further evaluation. 2. We will continue the patient's rhythm control therapy, amiodarone. Also, we will continue the patient's OAC therapy Eliquis. 3. We will obtain a carotid Doppler to evaluate for any carotid disease. 4. Continue telemonitoring. 5. We will continue to follow the patient and adjust cardiac therapy as clinical course dictates. Thank you very much for this consult. Dictated by Juan Cespedes NP Seen and examined Agree with note Ari Hernandez MD DC/ANNALISE /[id number] MTDD
--- NOTE | 2019-02-12 15:26 | Diagnostic Imaging Report ---
MRI BRAIN WO HISTORY: High blood pressure COMPARISON: Head CT 02/11/2019 TECHNIQUE: Sagittal T2, axial T2, axial T1, axial T2/FLAIR, axial gradient echo (or susceptibility weighted), coronal T2/FLAIR, and axial diffusion weighted MR images of the brain were obtained without contrast. DISCUSSION: Scalp/bone marrow: Unremarkable. Brain sulci: Prominent. Ventricles: Compensatory dilatation. Extra-axial spaces: No masses or fluid collections. Parenchyma: Scattered T2/FLAIR hyperintense foci throughout the supratentorial white matter are likely chronic microvascular ischemic changes. There is an old right striatocapsular hemorrhagic lacunar infarct. Otherwise, no acute mass, acute hemorrhage, or acute vascular insults. Vessels: Normal flow voids in major arteries and veins. Sellar/Suprasellar region: No abnormalities. Craniocervical junction: No abnormalities. Incidental findings: None. IMPRESSION: 1. No acute intracranial abnormalities. 2. Mild supratentorial chronic microvascular ischemic change. 3. Mild generalized cerebral volume loss. 4. 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 Signed by: Dr. Ethan Worley M.D. on 02/12/2019 3:23 PM
--- NOTE | 2019-02-12 16:35 | NUR ---
MET W THE PT AND AT THE BEDSIDE W BESIDE RN; DILCIA. DISCUSSED HOME JEFF FOR PHYSICAL THERAPY. CHOICES WERE PROVIDED. PT SIGNED CHOICE LETTER. CM CALLED [facility], [facility] AND [facility]. EACH AGENCY HAD NO MAURITANIAN SPEAKING PHYSICAL THERAPIST. [facility] WAS NOT IN NETWORK. WILL F/U W THE PT IN THE AM.
--- NOTE | 2019-02-12 19:00 | NUR ---
patient received awake, alert, lying quietly in bed. no c/o pain noted. pm assessment complete. patient instructed to call for assistance when needed.
[2019-02-12] MEDS ORDERED: ATORVASTATIN 20 MG TAB PO SCH (21:00)
[2019-02-13] VITALS: BP 119/76
--- NOTE | 2019-02-13 01:28 | Consultation ---
DATE OF CONSULTATION: 02/12/2019 Neurology Consult Note HISTORY OF PRESENT ILLNESS: Mr. Be is a 58-year-old [id number] man with multiple vascular risk factors, including recently diagnosed atrial fibrillation, admitted to [facility] under observation status on February 12, 2019, for possible strokes. At approximately 1600 hours on February 11, 2019, the patient began to experience a headache, which he describes as pressure located behind both eyes. Associated with the pain, the patient endorses dizziness, which is further described as unsteadiness, especially with moving the head. Mr. Be does not report a visual field defect or other disturbance, dysarthria, aphasia, hemiparesis, hemihypesthesia, or confusion associated with the above symptoms. He does report mildly impaired balance as well as mild gait impairment. The patient does not report photophobia, phonophobia, nausea, or vomiting associated with the above symptoms. Mr. Be does not endorse recent nasal congestion, rhinorrhea, sneezing, sore throat, or productive cough. He does not report fevers or chills. The above described symptoms progressively worsened over a period of several hours. Mr. Be then proceeded to the emergency center at [facility] for further evaluation of his symptoms. Upon arrival in the emergency center, the patient was afebrile with a blood pressure 158/98 mmHg and a pulse of 70 beats per minute. Mr. Be's neurological examination was documented as being nonfocal. While in the emergency center, a CT of the brain without contrast was performed. This study revealed age indeterminate lacunar infarcts in the right striatocapsular region and jadiel. Mr. Be was subsequently admitted to [facility] under observation status for further evaluation and treatment of his symptoms. As detailed above, Mr. Be was recently diagnosed with paroxysmal atrial fibrillation. He was hospitalized at [facility] last week for evaluation and treatment of new onset atrial fibrillation. Upon discharge, the patient was prescribed Eliquis 5 mg by mouth twice daily for anticoagulation. Mr. Be endorses his compliance with this medication. REVIEW OF SYSTEMS: Headache, dizziness, impairment of balance and gait. Otherwise, a 12-point review of systems is negative. PAST MEDICAL HISTORY: Hypertension, diabetes mellitus, and atrial fibrillation. PAST SURGICAL HISTORY: Left inguinal hernia repair. PAST HOSPITALIZATIONS: Surgeries/procedures as listed, atrial fibrillation last week. FAMILY MEDICAL HISTORY: The patient's father is alive and healthy. Mr. Be mother is alive. She has diabetes mellitus. The patient has one brother, who has heart disease. SOCIAL HISTORY: Mr. Be is . 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 The patient does not report current or prior tobacco or recreational drug use. Mr. Be reports occasional alcohol use. HOME MEDICATIONS: Amiodarone 200 mg by mouth daily, Eliquis 5 mg by mouth twice daily, metformin 500 mg by mouth daily, metoprolol tartrate 25 mg by mouth twice daily, and multivitamin. HOSPITAL MEDICATIONS: Tylenol, amiodarone, Eliquis, atorvastatin, hydralazine, Humulin R, losartan, metoprolol, Zofran, and Protonix. ALLERGIES: NO KNOWN DRUG ALLERGIES. NO KNOWN FOOD ALLERGIES. NO KNOWN ALLERGIES TO LATEX. NO KNOWN ALLERGIES TO IODINE OR OTHER CONTRAST MATERIALS. PHYSICAL EXAMINATION: VITAL SIGNS: Height 68 inches, weight 183 pounds, BMI 27.9 kg/m2, blood pressure 135/79 mmHg, pulse 68 beats per minute, respiratory rate 18 breaths per minute, and oxygen saturation 98% on room air. GENERAL: The patient is awake and alert, no acute distress. Overweight. HEENT: Normocephalic and atraumatic. Pupils are equal, round, and reactive to light. Moist mucous membranes. NECK: Supple. No appreciable thyromegaly. No appreciable carotid bruits. CARDIOVASCULAR: S1 and S2, regular rate and rhythm. No murmurs, rubs, or gallops. RESPIRATORY: Clear to auscultation bilaterally. No wheezes, rhonchi, or rales. EXTREMITIES: The skin is warm and dry. No clubbing, cyanosis, or edema. The posterior tibial and dorsalis pedis pulses are 2+ and symmetric. SKIN: No rashes or lesions. NEUROLOGIC: Memory/Attention: The patient is awake and alert, oriented to person, place, time, and situation. Cranial Nerves: Cranial nerve I - not tested. Cranial nerve II, III, IV, and - pupils are equal and round, react briskly to light (4 mm to 2 mm). Extraocular movements intact. No nystagmus. Cranial nerve V - sensation to light touch and pinprick is intact in the bilateral V1 through V3 distributions. Strength in the temporalis and masseter muscles is within normal limits. Cranial nerve VII - the face is symmetric as are all facial movements. Strength is within normal limits. Cranial nerve VIII - hearing is intact to finger rub bilaterally. Cranial nerve IX and X - the soft palate elevates equally and symmetrically. Cranial nerve XI - normal strength of the bilateral sternocleidomastoid and trapezius muscles. Cranial nerve XII - the tongue protrudes midline and moves symmetrically from lsjo-bi-nhbe. Strength: Bulk is normal. Strength is 5/5 in the bilateral deltoids, biceps, triceps, wrist flexors and extensors, finger flexors and extensors, intrinsic hand muscles, hip flexors, knee flexors and extensors, ankle dorsiflexion and plantar flexion, and intrinsic foot muscles. Tone is normal. DTRs: Deep tendon reflexes are 2+ and symmetric at the triceps and biceps. Deep tendon reflexes are 1+ and symmetric at the brachioradialis. Deep tendon reflexes are trace and symmetric at the patellas. Deep tendon reflexes are absent and symmetric at the Achilles. Plantar responses are flexor bilaterally. Sensation: Sensation is intact to light touch and pinprick in both arms and both legs. Cerebellar: Lxxxom-xbjo-squovz and heel-kovacs movements are intact without dysmetria or other impairment. Gait: Deferred. Speech: Spontaneous speech is normal without appreciable dysarthria or aphasia. Repetition is intact. Involuntary movements: None. Pronator Drift: None. LABORATORY DATA: A comprehensive metabolic panel is unremarkable. Hemoglobin A1c is 6.2. Total cholesterol 149, triglycerides 95, LDL cholesterol 83, and HDL cholesterol 47. TSH 1.807. The CBC with differential and platelets is unremarkable. A coagulation profile is within normal limits. A urinalysis is unremarkable. DIAGNOSTIC STUDIES: Electrocardiogram 02/11/2019: Normal sinus rhythm at [address] of the brain without contrast 02/11/2019: Age indeterminate lacunar infarcts are seen in the right striatocapsular region and jadiel. Cerebral volumes are appropriate for age. There are findings compatible with mild chronic small vessel ischemic disease. Chest x-ray 02/11/2019: Findings can be seen with bronchitis. Bilateral carotid artery ultrasound with Doppler 02/12/2019: There is no hemodynamically significant atherosclerosis in either carotid artery system. Flow is antegrade in the bilateral vertebral arteries. MRI of the brain without contrast 02/12/2019: On my review, there is no evidence of recent large territorial ischemia, hemorrhage, mass, or mass effect. The lacunar infarcts seen on the CT of the brain without contrast are chronic. Cerebral volumes are appropriate for age. There are findings compatible with mild chronic small vessel ischemic disease. ASSESSMENT AND PLAN: Mr. Be is a 58-year-old right-hand dominant man with multiple vascular risk factors, admitted to [facility] under observation status with a headache, dizziness, and was found to have multiple age-indeterminate strokes on CT of the brain without contrast. The patient's neurological examination is nonfocal. Mr. Pages laboratory data and other diagnostic studies have been reviewed and are documented above. Of note, the MRI of the brain without contrast revealed the patient's strokes are chronic (greater than 4-week-old). RECOMMENDATIONS: Are as follows: 1. Continue Eliquis 5 mg by mouth twice daily for stroke prophylaxis. Mr. Be goal blood pressure is less than 130/70 mmHg. At present, the patient's blood pressures are at goal. Continue home antihypertensive medications. Monitor vital signs per unit protocol and add/adjust antihypertensive medications to goal. 2. The patient's goal total cholesterol is less than 200 with an LDL of less than 70. The patient's total cholesterol is at goal, LDL is mildly elevated. Agree with treatment with Lipitor 20 mg by mouth at bedtime daily. A lipid panel should be rechecked in 8 weeks. 3. The patient's goal hemoglobin A1c is less than 7.0. Mr. Walker hemoglobin A1c is at goal. Tight glycemic control is recommended while the patient is hospitalized. Defer to the primary service. 4. Speech and physical therapist have evaluated the patient. He has no needs. 5. GI prophylaxis with Protonix 40 mg by mouth daily. DVT prophylaxis with Eliquis 5 mg by mouth twice daily. 6. Anticipated disposition: Home with no needs in 1-2 days. Thank you for this consultation. I will continue to follow the patient while he remains in the hospital. TIME SPENT: 70 minutes. Dana Jordan MD CP/ANNALISE /[id number] [place]
[2019-02-13 04:00] VITALS: BP 131/82
[2019-02-13 06:02] LABS: BASOPHILS % 0.7 % (0.0-1.0); EOSINOPHILS # (AUTO) 0.2 (0.0-0.4); EOSINOPHILS % 2.9 % (0.0-6.0); HEMATOCRIT 41.3 % (38.2-49.6); HEMOGLOBIN 13.4 g/dL (14.0-18.0); LYMPHOCYTES # (AUTO) 1.9 (1.0-3.2); LYMPHOCYTES % 32.3 % (18.0-39.1); MEAN CORPUSCULAR HEMOGLOBIN 28.8 pg (28-32); MEAN CORPUSCULAR HGB CONC 32.4 g/dL (31-35); MEAN CORPUSCULAR VOLUME 88.8 fL (81-99); MONOCYTES # (AUTO) 0.4 (0.2-0.8); MONOCYTES % 7.4 % (4.4-11.3); NEUTROPHILS # (AUTO) 3.4 (2.1-6.9); NEUTROPHILS % 56.4 % (38.7-80.0); PLATELET COUNT 290 x10e3/uL (140-360); RED BLOOD COUNT 4.65 x10e6/uL (4.3-5.7); RED CELL DISTRIBUTION WIDTH 13.8 % (11.7-14.4)
[2019-02-13 06:22] LABS: ALANINE AMINOTRANSFERASE 22 IU/L (0-55); ALBUMIN 3.6 g/dL (3.5-5.0); ALBUMIN/GLOBULIN RATIO 1.2 (0.8-2.0); ALKALINE PHOSPHATASE 49 IU/L (40-150); ANION GAP 13.4 mmol/L (8-16); BLOOD UREA NITROGEN 15 mg/dL (7-26); BUN/CREATININE RATIO 16 (6-25); CALCIUM 8.9 mg/dL (8.4-10.2); CARBON DIOXIDE 25 mmol/L (22-29); CHLORIDE 107 mmol/L (98-107); CREATININE, SERUM 0.95 mg/dL (0.72-1.25); EST GLOMERULAR FILTRATION RATE > 60 ML/MIN (60-); GLUCOSE 90 mg/dL (74-118); POTASSIUM 4.4 mmol/L (3.5-5.1); SODIUM 141 mmol/L (136-145)
[2019-02-13] MEDS: INSULIN REGULAR, HUMAN 100 UNIT/1 ML 3ML VIAL SQ SCH ×2 (07:30→11:30)
[2019-02-13] MEDS ORDERED: PANTOPRAZOLE SOD 40 MG TABEC PO SCH (07:30)
[2019-02-13 07:43] VITALS: BP 123/74
[2019-02-13] MEDS: APIXABAN 5 MG TABLET PO SCH (08:55)
[2019-02-13] MEDS: METOPROLOL TARTRATE 25 MG TAB PO SCH (08:55)
[2019-02-13] MEDS: AMIODARONE HCL 200 MG TAB PO SCH (08:55)
[2019-02-13] MEDS ORDERED: OMEPRAZOLE 20 MG CAP PO SCH (09:00)
[2019-02-13] MEDS ORDERED: LOSARTAN POTASSIUM 25 MG TAB PO SCH (09:00)
--- NOTE | 2019-02-13 11:13 | NUR ---
MET W THE PT AND SPOUSE AT THE BEDSIDE. PER THE RN, PT STATED HE DID NOT NEED PT AT HOME. VERIFIED W THE PT AND FILING MACHINE OPERATOR; RENÉE. PT DECLINED HOME HEALTH. NOTED AMBULATED >400FT W PT W/O ASSIST.
[2019-02-13] MEDS ORDERED: LIPITOR20 MG PO (11:31)
[2019-02-13] MEDS ORDERED: COZAAR25 MG PO (11:31)
[2019-02-13] MEDS ORDERED: ACETAMINOPHEN325 M1 PO (11:31)
[2019-02-13] MEDS ORDERED: PROTONIX40 MG/ML PO (11:31)
[2019-02-13 11:39] VITALS: BP 123/74
[2019-02-13 11:40] VITALS: BP 140/80
--- NOTE | 2019-02-14 00:21 | Discharge Summary ---
CONSULTING PHYSICIANS: Include Dr. Dana Jordan with Neurology and Dr. Ari Hernandez with Cardiology. HISTORY OF PRESENT ILLNESS: Mr. Be is a 58-year-old male with recent diagnosis of atrial fibrillation, who admitted with complaints of headache and bilateral eye pain that began around 03:00 p.m. on February 11. The pain was sharp and intermittent. He denied vision changes and weakness. He said his systolic blood pressure was in the 190s despite taking his antihypertensives. PAST MEDICAL HISTORY: Includes hypertension, type 2 diabetes mellitus, and atrial fibrillation. PAST SURGICAL HISTORY: Left inguinal hernia repair. FAMILY HISTORY: His mother has diabetes mellitus. SOCIAL HISTORY: Occasional alcohol use. ALLERGIES: NO KNOWN ALLERGIES. ADMITTING DIAGNOSES: 1. Lacunar infarct. 2. Hypertension. 3. Type 2 diabetes mellitus. 4. Atrial fibrillation. DISCHARGE DIAGNOSES: 1. Chronic lacunar infarct. 2. Hypertension, controlled. 3. Type 2 diabetes mellitus, controlled. 4. Paroxysmal atrial fibrillation with heart rate controlled. HOSPITAL COURSE: Per Dr. Jordan's note at approximately 1600 hours on February 11, the patient began to experience headache, which he described as pressure located on both eyes associated with the pain. The patient endorsed dizziness, which is further described as unsteadiness, especially with moving the head. CT of the brain without contrast on 02/11/2019, showed age indeterminate lacunar infarcts seen in the right striatocapsular region and jadiel. Cerebral volumes are appropriate for age. Findings compatible with mild chronic small vessel ischemic disease. Bilateral carotid artery ultrasound with Doppler done on 02/12, showed no hemodynamically significant atherosclerosis in either carotid artery system. Flow antegrade in the bilateral vertebral arteries. MRI of the brain without contrast on 02/12/2019, showed no evidence of recent large territorial ischemia, hemorrhage, mass, or mass effect. The lacunar infarcts seen on the CT of the brain without contrast are chronic, cerebral volumes appropriate for age, findings compatible with mild chronic small vessel ischemic disease. The patient is on Eliquis 5 mg p.o. b.i.d. for stroke prophylaxis and for atrial fibrillation. The patient's total cholesterol is at goal, LDL mildly elevated. We will discharge the patient on Lipitor 20 mg p.o. at bedtime as well as new prescriptions for Cozaar 25 mg p.o. daily and Protonix 40 mg p.o. a.c. breakfast and p.r.n. Tylenol. Hemoglobin A1c was 6.2%, which is at goal. Speech and Physical Therapy both evaluated the patient and he has no needs. The patient is seen with his at bedside and pest control pilot utilized, who is bilingual both in [place] and [place]. He explained the general findings and the patient is anxious to be discharged home. He does not have any questions. We will continue on ADA diet. Activity level as tolerated. Follow up with Electrophysiology per recommendations from Dr. Hernandez. He has an outpatient followup appointment scheduled with EP on 02/15/2019. Follow up with PCP in 1 to 2 weeks. Dictated by Daniel Chopra NP MD JOYCE ZamoraP/ANNALISE /[id number]
== END 2019-02-13 12:39 | disposition home or self-care (01) ==
LOC: ER 20:55 → ERHOLD 02-12 01:47 → MED/SURG3 02-12 04:19
PROVIDERS: ADMIT Internal Medicine; ATTEND Internal Medicine
DX: I69.398 Other sequelae of cerebral infarction (principal); I10 Essential (primary) hypertension; E11.9 Type 2 diabetes mellitus without complications; I48.0 Paroxysmal atrial fibrillation; Z79.01 Long term (current) use of anticoagulants; Z83.3 Family history of diabetes mellitus; Z82.49 Family history of ischemic heart disease and other diseases of the circulatory system; H57.13 Ocular pain, bilateral
CPT/HCPCS: 36415 ×2; 70450; 70551; 71046; 80053 ×2; 80061; 81001; 82550; 82553; 82948 ×2; 83036; 84443; 84484; 85025 ×2; 85610; 85730; 92610; 93005; 93880; 97116; 97161; 99284; G0378 ×2; J1817; J8597; S0164

== ENCOUNTER 2019-02-25 21:49 | Emergency (ER) | payer BC ==
[~2019-02-25] VITALS: Ht 172.7 cm; Wt 83.0 kg
[~2019-02-25 21:49] MED LIST changes: +ACETAMINOPHEN325 M1 PO; +COZAAR25 MG PO; +LIPITOR20 MG PO; +PROTONIX40 MG/ML PO
[2019-02-25 22:39] LABS: BASOPHILS % 0.5 % (0.0-1.0); EOSINOPHILS # (AUTO) 0.1 (0.0-0.4); EOSINOPHILS % 1.6 % (0.0-6.0); HEMATOCRIT 42.5 % (38.2-49.6); HEMOGLOBIN 13.9 g/dL (14.0-18.0); LYMPHOCYTES % 26.3 % (18.0-39.1); MEAN CORPUSCULAR HEMOGLOBIN 28.8 pg (28-32); MEAN CORPUSCULAR HGB CONC 32.7 g/dL (31-35); MONOCYTES # (AUTO) 0.5 (0.2-0.8); MONOCYTES % 6.6 % (4.4-11.3); NEUTROPHILS # (AUTO) 4.9 (2.1-6.9); NEUTROPHILS % 64.6 % (38.7-80.0); PLATELET COUNT 275 x10e3/uL (140-360); RED BLOOD COUNT 4.83 x10e6/uL (4.3-5.7); RED CELL DISTRIBUTION WIDTH 13.3 % (11.7-14.4)
[2019-02-25 22:51] LABS: ALANINE AMINOTRANSFERASE 24 IU/L (0-55); ALBUMIN/GLOBULIN RATIO 1.2 (0.8-2.0); ALKALINE PHOSPHATASE 54 IU/L (40-150); BLOOD UREA NITROGEN 16 mg/dL (7-26); BUN/CREATININE RATIO 16 (6-25); CALCIUM 9.4 mg/dL (8.4-10.2); CARBON DIOXIDE 28 mmol/L (22-29); CHLORIDE 101 mmol/L (98-107); CREATINE KINASE 44 IU/L (30-200); CREATININE, SERUM 0.97 mg/dL (0.72-1.25); EST GLOMERULAR FILTRATION RATE > 60 ML/MIN (60-); GLUCOSE 145 mg/dL (74-118); SODIUM 139 mmol/L (136-145)
--- NOTE | 2019-02-25 23:01 | Diagnostic Imaging Report ---
EXAMINATION: CHEST SINGLE (PORTABLE) COMPARISON: Chest x-ray 02/11/2019 INDICATION: ^palpitations ^Y DISCUSSION: Frontal view of the chest obtained at 2246 hours. HEART AND MEDIASTINUM: The heart is normal in size. The aorta is mildly tortuous LINES: None. LUNGS: The lungs are well inflated and clear. No pneumonia or pulmonary edema. PLEURA: No pleural effusion or pneumothorax. BONES AND SOFT TISSUES: No focal osseous lesion. The soft tissues are normal. IMPRESSION: No acute cardiopulmonary disease. Signed by: Dr. Sarwat Alva MD on 02/25/2019 10:58 PM
[2019-02-25 23:21] VITALS: BP 142/87
== END 2019-02-25 23:32 | disposition home or self-care (01) ==
LOC: ER 21:49
DX: R00.2 Palpitations (principal); I10 Essential (primary) hypertension; E11.9 Type 2 diabetes mellitus without complications; I48.91 Unspecified atrial fibrillation
CPT/HCPCS: 36415; 71045; 80053; 82550; 82553; 84484; 85025; 99283